=== PATIENT | female | born 1960 | race Caucasian/White ===

== ENCOUNTER → 2023-06-13 12:09 | Outpatient (CLI) | payer OTHER, SELFPAY ==
[2023-06-14 09:28] LABS: Rubeola Measles IgG < 13.5 AU/mL (Immune >16.4)
[2023-06-19 02:36] LABS: QuantiFERON Mitogen Value >10.00 IU/mL (.); QuantiFERON Nil Value 0.05 IU/mL (.); QuantiFERON TB Gold Plus Negative (Negative); QuantiFERON TB1 Ag Value 0.05 IU/mL (.); QuantiFERON TB2 Ag Value 0.06 IU/mL (.)
== END ==
LOC: LAB 12:12
DX: Z02.1 Encounter for pre-employment examination (principal)
CPT/HCPCS: 36415; 86480; 86735; 86762; 86765